=== PATIENT | female | born 1975 | race African-American/Black ===

== ENCOUNTER 2016-09-02 08:31 | Emergency (ER) | payer MEDICAID ==
[~2016-09-02] VITALS: Ht 157.5 cm; Wt 80.0 kg
[~2016-09-02 08:31] MED LIST: ALBU1AER INH; BENZ100 PO; HYDR-3533 PO; PRED20 PO
[2016-09-02 08:33] VITALS: BP 108/67; PULSE 120; RESP 16; TEMP 99.9; O2SAT 98
[2016-09-02] MEDS ORDERED: SODIUM CHLORIDE 0.9% FLUSH 10 ML FLUSH IVF PRN (09:00)
[2016-09-02] MEDS ORDERED: MORPHINE SULFATE 4 MG/ML INJ IV ONE (09:00)
[2016-09-02] MEDS ORDERED: SODIUM CHLOR 0.9% 1000 ML INJ 1,000 ML IV ONE ×2 (09:00→10:30)
[2016-09-02] MEDS ORDERED: ONDANSETRON HCL 4 MG/2 ML VIAL IVP ONE (09:00)
--- NOTE | 2016-09-02 09:08 | PD ---
HPI Chief Complaint: GI Complaint Time Seen by Provider: 09:00 Travel History International Travel<30 days: No Contact w/Intl Traveler<30days: No Traveled to known affect area: No History of Present Illness HPI This is a 41-year-old female who presents today with complaints of nausea and diarrhea 5 days. The patient states that on Monday she ate "hot head she's" and shortly thereafter she started experiencing severe abdominal cramps followed by watery diarrhea. She reports it's persisted since then. She denies any fevers, chills. She states that she starts having cramps and feels the urge to pass gas but then has explosive watery diarrhea. She states that she's has had uncontrolled bowel movements and has soiled herself several times. She reports no one else ate the cheese. She states that when she started sprinting the symptoms, she asked her to check it and he noted that half of it looked rotten. PFSH Past Medical History Anemia: Yes Diminished Hearing: No Immunizations Current: Yes ?: Not : 7 Para: 3 Miscarriage: 2 : 2 Tubal Ligation: Yes (2011) Past Surgical History Section: Yes (X3) Gynecologic Surgery: Yes Other Surgery: Yes Social History Alcohol Use: No (SOCIALLY) Tobacco Use: No (STATES SOMETIMES SMOKES 3-4 DAY) Substance Use: No Allergies-Medications (Allergen,Severity, Reaction): Coded Allergies: Naproxen (Verified Allergy, Intermediate, NAUSEA, 09/02/16) Reported Meds & Prescriptions Reported Meds & Active Scripts Active Bentyl (Dicyclomine HCl) 10 Mg Cap 10 Mg PO TID Iron (Ferrous Sulfate) 50 Mg Tab 50 Mg PO DAILY Cipro (Ciprofloxacin HCl) 500 Mg Tab 500 Mg PO BID Reported Lortab (Hydrocodone-Acetaminophen) 5-325 Mg Tab 1 Tab PO Q6H PRN Review of Systems Except as stated in HPI: all other systems reviewed are Neg General / Constitutional: No: Fever, Chills HENT: No: Headaches, Lightheadedness Cardiovascular: No: Chest Pain or Discomfort, Palpitations Respiratory: No: Cough, Shortness of Breath Gastrointestinal: Positive: Nausea, Diarrhea, Abdominal Pain (diffuse cramping) , No: Vomiting, Hematochezia Genitourinary: No: Frequency, Dysuria Musculoskeletal: Positive: Weakness, No: Pain Skin: No Rash, No Itching Neurologic: Positive: Weakness, No: Dizziness, Headache Physical Exam Narrative GENERAL: Well-developed well-nourished female in no acute respiratory distress. SKIN: Focused skin assessment warm/dry. No skin tenting HEAD: Atraumatic. Normocephalic. EYES: No scleral icterus. No injection or drainage. ENT: No nasal bleeding or discharge. Mucous membranes pink and dry NECK: Trachea midline. Supple. CARDIOVASCULAR: Tachycardic in the low 100s. Sinus rhythm. No murmur appreciated. RESPIRATORY: No accessory muscle use. Clear to auscultation. GASTROINTESTINAL: Abdomen soft, nondistended. She had subjective diffuse cramping. There is no rebound or guarding. MUSCULOSKELETAL: No obvious deformities. No clubbing. No cyanosis. No edema. NEUROLOGICAL: Awake and alert. No obvious cranial nerve deficits. Motor grossly within normal limits. Normal speech. PSYCHIATRIC: Appropriate but tearful. Data Data Last Documented VS Vital Signs Date Time Temp Pulse Resp B/P Pulse Ox O2 Delivery O2 Flow Rate FiO2 09/02/16 11:40 90 16 105/62 100 09/02/16 10:04 Room Air 09/02/16 08:33 99.9 Orders Complete Blood Count With Diff (09/02/16 09:00) Comprehensive Metabolic Panel (09/02/16 09:00) Urinalysis - C+S If Indicated (09/02/16 09:00) Lipase (09/02/16 09:00) Iv Access Insert/Monitor (09/02/16 09:00) Ecg Monitoring (09/02/16 09:00) Oximetry (09/02/16 09:00) Morphine Inj (Morphine Inj) (09/02/16 09:00) Ondansetron Inj (Zofran Inj) (09/02/16 09:00) Sodium Chlor 0.9% 1000 Ml Inj (Ns 1000 M (09/02/16 09:00) Sodium Chloride 0.9% Flush (Ns Flush) (09/02/16 09:00) C Diff Toxin Pcr (09/02/16 09:00) Enteric Path (Stool) (09/02/16 09:00) Ed Urine Pregnancytest Poc (09/02/16 09:00) Sodium Chlor 0.9% 1000 Ml Inj (Ns 1000 M (09/02/16 10:30) Urine Culture (09/02/16 09:46) Dicyclomine Inj (Bentyl Inj) (09/02/16 11:45) Labs Laboratory Tests Test 09/02/16 09/02/16 09:10 09:46 White Blood Count 13.0 TH/MM3 Red Blood Count 3.56 MIL/MM3 Hemoglobin 7.7 GM/DL Hematocrit 25.5 % Mean Corpuscular Volume 71.7 FL Mean Corpuscular Hemoglobin 21.5 PG Mean Corpuscular Hemoglobin 30.0 % Concent Red Cell Distribution Width 20.6 % Platelet Count 729 TH/MM3 Mean Platelet Volume 8.2 FL Neutrophils (%) (Auto) 71.9 % Lymphocytes (%) (Auto) 14.9 % Monocytes (%) (Auto) 11.5 % Eosinophils (%) (Auto) 1.4 % Basophils (%) (Auto) 0.3 % Neutrophils # (Auto) 9.4 TH/MM3 Lymphocytes # (Auto) 1.9 TH/MM3 Monocytes # (Auto) 1.5 TH/MM3 Eosinophils # (Auto) 0.2 TH/MM3 Basophils # (Auto) 0.0 TH/MM3 CBC Comment DIFF FINAL Differential Comment Sodium Level 138 MEQ/L Potassium Level 3.8 MEQ/L Chloride Level 103 MEQ/L Carbon Dioxide Level 26.0 MEQ/L Anion Gap 9 MEQ/L Blood Urea Nitrogen 9 MG/DL Creatinine 0.69 MG/DL Estimat Glomerular Filtration 114 ML/MIN Rate Random Glucose 86 MG/DL Calcium Level 8.8 MG/DL Total Bilirubin 0.2 MG/DL Aspartate Amino Transf 22 U/L (AST/SGOT) Alanine Aminotransferase 12 U/L (ALT/SGPT) Alkaline Phosphatase 61 U/L Total Protein 7.2 GM/DL Albumin 3.3 GM/DL Lipase 76 U/L Urine Color YELLOW Urine Turbidity HAZY Urine pH 6.0 Urine Specific [place] 1.026 Urine Protein TRACE mg/dL Urine Glucose (UA) NEG mg/dL Urine Ketones NEG mg/dL Urine Occult Blood NEG Urine Nitrite NEG Urine Bilirubin NEG Urine Urobilinogen LESS THAN 2.0 MG/DL Urine Leukocyte Esterase MOD Urine RBC 9 /hpf Urine WBC 10 /hpf Urine Squamous Epithelial 32 /hpf Cells Urine Bacteria OCC /hpf Urine Mucus MANY /lpf Urine Trichomonas OCC Microscopic Urinalysis Comment CULTURE INDICATED Stool C. difficile Toxin (PCR) NEGATIVE Stl C. difficile Toxin PRESUMPTIVE Epiderm 027 NEGATIVE MDM Medical Decision Making Medical Screen Exam Complete: Yes Emergency Medical Condition: Yes Differential Diagnosis Infectious diarrhea versus cholecystitis versus diverticulitis Narrative Course 41-year-old female presents with nausea and diarrhea and abdominal cramps since Monday. The patient ate suspicious pork product that was probably rotten. Patient has been given 2 L of IVD fluid. She's been given Zofran and morphine initially and now Bentyl. She feels much improved. She is also noted to be anemic. She states she has a history of anemia and is supposed to be taking iron tablets however has not. She'll be represcribed iron, given a prescription for Cipro for suspected infectious diarrhea, and a prescription for Bentyl for the abdominal spasms. She is instructed to drink plenty of fluid. Diagnosis Primary Impression: Infectious diarrhea Additional Impression: Chronic anemia Additional Instructions: It is important he follow up with a primary care physician for your anemia. Med/Other Pt SpecificInfo: Prescription(s) given Scripts Dicyclomine (Bentyl)10 Mg Cap10 Mg PO TID #15 CAP Ref 0 Prov:Priyank Valle MD 09/02/16 Ferrous Sulfate (Iron)50 Mg Tab50 Mg PO DAILY #30 TAB Ref 1 Prov:Priyank Valle MD 09/02/16 Ciprofloxacin (Cipro)500 Mg Yee538 Mg PO BID #10 TAB Ref 0 Prov:Priyank Valle MD 09/02/16 Disposition: 01 DISCHARGE HOME Condition: Stable Priyank Valle MD September 02, 2016 09:08
[2016-09-02 09:47] LABS: AUTOMATED NEUTROPHIL # 9.4 TH/MM3 (1.8-7.7); BASOPHIL % 0.3 % (0.0-2.0); EOSINOPHIL # 0.2 TH/MM3 (0-0.4); EOSINOPHIL % 1.4 % (0.0-4.0); HEMATOCRIT 25.5 % (35.0-46.0); HEMO FLAGS DIFF FINAL; LYMPH % 14.9 % (9.0-44.0); LYMPHOCYTE # 1.9 TH/MM3 (1.0-4.8); MEAN CELL VOLUME 71.7 FL (80.0-100.0); MEAN CORPUSCULAR HEMOGLOBIN 21.5 PG (27.0-34.0); MONO % 11.5 % (0.0-8.0); NEUT % 71.9 % (16.0-70.0); PLATELET COUNT 729 TH/MM3 (150-450); RED BLOOD COUNT 3.56 MIL/MM3 (4.00-5.30); RED CELL DISTRIBUTION WIDTH 20.6 % (11.6-17.2)
[2016-09-02 09:50] VITALS: BP 121/66; PULSE 102; RESP 16; O2SAT 98
[2016-09-02] MEDS ORDERED: HYDR-3533 PO (09:53)
[2016-09-02 10:04] VITALS: BP 105/58; PULSE 97; RESP 16; O2SAT 99
[2016-09-02 10:10] LABS: ANION GAP 9 MEQ/L (5-15); AST (GOT) 22 U/L (15-37); BLOOD UREA NITROGEN 9 MG/DL (7-18); CHLORIDE 103 MEQ/L (98-107); GLOMERULAR FILTRATION RATE 114 ML/MIN (>89); POTASSIUM 3.8 MEQ/L (3.5-5.1); SODIUM (NA) 138 MEQ/L (136-145)
[2016-09-02 10:13] LABS: ALKALINE PHOSPHATASE 61 U/L (45-117); ALT (GPT) 12 U/L (10-53); TOTAL BILIRUBIN ADULT 0.2 MG/DL (0.2-1.0)
[2016-09-02 10:33] LABS: BACTERIA, URINE OCC /hpf; BLOOD, URINE NEG (NEG); COMMENT (UR) CULTURE INDICATED; CULTURE IF INDICATED CULTURE INDICATED; GLUCOSE,URINE NEG (NEG); KETONE, URINE NEG (NEG); MUCUS URINE MANY /lpf (OCC); NITRITE,URINE NEG (NEG); SQUAMOUS EPITHELIAL CELL URINE 32 /hpf (0-5); URINE COLOR YELLOW (YELLW/STRAW)
[2016-09-02] MEDS ORDERED: DICY10 PO (10:35)
[2016-09-02] MEDS ORDERED: CIPR-9 PO (10:35)
[2016-09-02] MEDS ORDERED: FERR1TAB58 PO (10:35)
[2016-09-02 11:40] VITALS: BP 105/62
[2016-09-02] MEDS ORDERED: DICYCLOMINE HCL 20 MG/2 ML VIAL IM ONE (11:45)
[2016-09-02 11:50] LABS: C. DIFF EPI 027 PRESUMPTIVE NEGATIVE (NEGATIVE); C. DIFF TOXIN PCR NEGATIVE (NEGATIVE)
== END 2016-09-02 11:55 | disposition home or self-care (01) ==
LOC: NEPC 08:31
DX: A09 Infectious gastroenteritis and colitis, unspecified (principal); B96.89 Other specified bacterial agents as the cause of diseases classified elsewhere; D64.9 Anemia, unspecified; Z72.0 Tobacco use
CPT/HCPCS: 80053; 81001; 83690; 84703; 85025; 87086; 87493; 87506; 96361; 96372; 96374; 96375; 99284; J0500; J2270; J2405; J7030